=== PATIENT | male | born 2000 | race American Indian/Alaskan Native ===

== ENCOUNTER 2018-05-30 18:37 | Emergency (ER) | payer OTHER ==
--- NOTE | 2018-05-30 18:50 | Emergency Department Report ---
Blank Doc - Documentation Documentation: This is a 17-year-old male that presents with sore throat, fever, body aches, and decreased appetite. This initial assessment diagnostic orders/clinical plan/treatment(s) is/are subject to change based on patient's health status, clinical progression and re- assessment by fellow clinical providers in the ED. Further treatment and workup at subsequent clinical providers discretion. Patient/guardians urged not to elope from ED s their condition may be serious if not clinically assessed and managed. Initial orders include: 1-Patient sent to [facility] for further evaluation and treatment 2- strep test
[2018-05-30] MEDS ORDERED: TYLENOL PO ONE (18:52)
[2018-05-30] MEDS ORDERED: TYLENOL ONE (18:56)
--- NOTE | 2018-05-31 00:22 | Emergency Department Report ---
HPI - General Chief Complaint: Sore Throat Time Seen by Provider: 05/30/18 18:49 ED Past Medical Hx - Past Medical History Previous Medical History?: No - Surgical History Past Surgical History?: No - Social History Smoking Status: Never Smoker Substance Use Type: None ED Review of Systems ROS: Stated complaint: SORE THROAT Other details as noted in HPI Physical Exam - Physical Exam Vital Signs: Vital Signs 05/30/18 05/30/18 18:50 18:55 Temperature 101.8 F H Pulse Rate 109 H Respiratory 18 18 Rate Blood Pressure 112/82 O2 Sat by Pulse 97 Oximetry ED Course Vital Signs 05/30/18 05/30/18 18:50 18:55 Temperature 101.8 F H Pulse Rate 109 H Respiratory 18 18 Rate Blood Pressure 112/82 O2 Sat by Pulse 97 Oximetry Critical care attestation.: If time is entered above; I have spent that time in minutes in the direct care of this critically ill patient, excluding procedure time. ED Disposition Condition: Stable Referrals: FIFI MATTSON MD [Primary Care Provider] - 3-5 Days
--- NOTE | 2018-05-31 00:29 | Emergency Department Report ---
ED ENT HPI - General Chief complaint: Sore Throat Stated complaint: SORE THROAT Time Seen by Provider: 05/30/18 18:49 Source: patient, family Mode of arrival: Ambulatory Limitations: No Limitations - History of Present Illness Initial comments: This is a 17-year-old male here reports that he is having sore throat difficult to swallow and difficult to hold is 68. He said this started on Wednesday and he is having fever and sore throat is that of the 10 worse with swallowing. Denies any cough or nasal congestion. He said the left side of his neck appears to be swollen. Denies any difficulty in breathing and or chest pain. MD complaint: sore throat, difficulty swallowing Onset/Timin -: days(s) Location: throat Severity: severe Severity scale (0 -10): 10 Quality: constant Consistency: constant Improves with: none Worsens with: swallowing Context-Epistaxis: other (none) Context- Dental: poor dental care Associated Symptoms: fever, pain with swallowing, sore throat. denies: cough, gum swelling, toothache, tinnitus, hearing loss, discharge from ear, rhinorrhea - Related Data Previous Rx's Medication Instructions Recorded Last Taken Type Acetaminophen/Codeine [Tylenol 1 tab PO Q6H PRN #14 tab 05/31/18 Unknown Rx /Codeine # 3 tab] Chlorhexidine Mouthwash [Peridex] 15 ml MM TID 7 Days #1 bottle 05/31/18 Unknown Rx Clindamycin [Clindamycin CAP] 300 mg PO Q8H 10 Days #30 cap 05/31/18 Unknown Rx Ibuprofen [Motrin] 800 mg PO Q8HR PRN #12 tablet 05/31/18 Unknown Rx predniSONE [Deltasone] 50 mg PO QDAY 3 Days #3 tab 05/31/18 Unknown Rx Allergies Allergy/AdvReac Type Severity Reaction Status Date / Time No Known Allergies Allergy Unverified 05/30/18 18:55 ED Dental HPI - General Chief complaint: Sore Throat Stated complaint: SORE THROAT Time Seen by Provider: 05/30/18 18:49 Source: patient Mode of arrival: Ambulatory Limitations: No Limitations - Related Data Previous Rx's Medication Instructions Recorded Last Taken Type Acetaminophen/Codeine [Tylenol 1 tab PO Q6H PRN #14 tab 05/31/18 Unknown Rx /Codeine # 3 tab] Chlorhexidine Mouthwash [Peridex] 15 ml MM TID 7 Days #1 bottle 05/31/18 Unknown Rx Clindamycin [Clindamycin CAP] 300 mg PO Q8H 10 Days #30 cap 05/31/18 Unknown Rx Ibuprofen [Motrin] 800 mg PO Q8HR PRN #12 tablet 05/31/18 Unknown Rx predniSONE [Deltasone] 50 mg PO QDAY 3 Days #3 tab 05/31/18 Unknown Rx Allergies Allergy/AdvReac Type Severity Reaction Status Date / Time No Known Allergies Allergy Unverified 05/30/18 18:55 ED Review of Systems ROS: Stated complaint: SORE THROAT Other details as noted in HPI Constitutional: chills, fever ED Past Medical Hx - Past Medical History Previous Medical History?: No - Surgical History Past Surgical History?: No - Social History Smoking Status: Never Smoker Substance Use Type: None - Medications Home Medications: Home Medications Medication Instructions Recorded Confirmed Last Taken Type Acetaminophen/Codeine [Tylenol 1 tab PO Q6H PRN #14 tab 05/31/18 Unknown Rx /Codeine # 3 tab] Chlorhexidine Mouthwash [Peridex] 15 ml MM TID 7 Days #1 bottle 05/31/18 Unknown Rx Clindamycin [Clindamycin CAP] 300 mg PO Q8H 10 Days #30 cap 05/31/18 Unknown Rx Ibuprofen [Motrin] 800 mg PO Q8HR PRN #12 tablet 05/31/18 Unknown Rx predniSONE [Deltasone] 50 mg PO QDAY 3 Days #3 tab 05/31/18 Unknown Rx ED Physical Exam - General Limitations: No Limitations ED Course Vital Signs 05/30/18 05/30/18 05/31/18 18:50 18:55 01:01 Temperature 101.8 F H 99.1 F Pulse Rate 109 H 93 H Respiratory 18 18 16 Rate Blood Pressure 112/82 Blood Pressure 113/64 [Right] O2 Sat by Pulse 97 96 Oximetry - Reevaluation(s) Reevaluation #1: 05/31/18 00:46 Patient strep test came back negative. He was given 975 mg of Tylenol emergency room for fever of 101.8. Heart rates elevated. Started on IV fluid normal saline and Zofran 8 mg IV, Solu-Medrol 125 mg IV, morphine 4 mg IV and Maalox and lidocaine by mouth. Awaiting chest x-ray, lab work and CT scan with contrast of the neck. Reevaluation #2: 05/31/18 04:01 Patient is feeling a lot better. Throat is better. Strep test is negative, flu test is negative. Chest x-ray negative findings and CT of the neck shows no INSTRUMENTATION TECHNOLOGIST. I discussed this with patient and his father and it was understanding . Vital signs are stable. ED Medical Decision Making - Lab Data Result diagrams: 05/31/18 01:02 05/31/18 01:02 Lab Results 05/30/18 05/31/18 05/31/18 Range/Units 18:00 01:02 01:02 WBC 6.5 (4.5-11.0) K/mm3 RBC 5.98 H (3.65-5.03) M/mm3 Hgb 16.8 H (11.8-15.2) gm/dl Hct 49.9 H (35.5-45.6) % MCV 83 L (84-94) fl MCH 28 (28-32) pg MCHC 34 (32-34) % RDW 14.6 (13.2-15.2) % Plt Count 154 (140-440) K/mm3 Lamar % (Auto) Software Product Specialist Sodium 136 L (137-145) mmol/L Chloride 96.2 L (98-107) mmol/L Carbon Dioxide 26 (22-30) mmol/L BUN 11 (9-20) mg/dL Creatinine 0.8 (0.8-1.5) mg/dL Estimated GFR > 60 ml/min BUN/Creatinine Ratio 14 % Glucose 85 (75-100) mg/dL Lactic Acid (0.7-2.0) mmol/L Calcium 9.0 (8.4-10.2) mg/dL Influenza A (Rapid) (Negative) Influenza B (Rapid) (Negative) Group A Strep Rapid Negative (Negative) 05/31/18 05/31/18 Range/Units 01:02 01:25 WBC (4.5-11.0) K/mm3 RBC (3.65-5.03) M/mm3 Hgb (11.8-15.2) gm/dl Hct (35.5-45.6) % MCV (84-94) fl MCH (28-32) pg MCHC (32-34) % RDW (13.2-15.2) % Plt Count (140-440) K/mm3 Lamar % (Auto) Sodium (137-145) mmol/L Chloride (98-107) mmol/L Carbon Dioxide (22-30) mmol/L BUN (9-20) mg/dL Creatinine (0.8-1.5) mg/dL Estimated GFR ml/min BUN/Creatinine Ratio % Glucose (75-100) mg/dL Lactic Acid 1.10 (0.7-2.0) mmol/L Calcium (8.4-10.2) mg/dL Influenza A (Rapid) Negative (Negative) Influenza B (Rapid) Negative (Negative) Group A Strep Rapid (Negative) - Radiology Data Radiology results: report reviewed X-ray of the chest and CT scan of the neck with contrast dictated by radiologist and reports reviewed by myself. Please see details below Findings [address] [address] XRay Report Signed Patient: KEMAR RUSH II MR#: [id number] : 2000 Acct:[id number] Age/Sex: 17 / M ADM Date: 05/30/18 Loc: ED Attending Dr: Ordering Physician: LINDSEY JONES Date of Service: 05/31/18 Procedure(s): XR chest routine 2V Accession Number(s): [id number] cc: LINDSEY JONES Fluoro Time In Minutes: FINAL REPORT EXAM: XR CHEST ROUTINE 2V HISTORY: fever unknown origin TECHNIQUE: PA and lateral views of the chest were submitted. FINDINGS: Allowing for the depth of inspiration, the lungs are clear. Pleural fluid is not seen. The heart size is normal. The skeletal structures are well-maintained. IMPRESSION: No acute cardiopulmonary process. Transcribed By: RB Dictated By: HELENA SINGER MD Electronically Authenticated By: HELENA SINGER MD Signed Date/Time: 05/31/1855 DD/ TD/TT: 05/31/[address] [address] Cat Scan Report Signed Patient: KEMAR RUSH II MR#: [id number] : 2000 Acct:[id number] Age/Sex: 17 / M ADM Date: 05/30/18 Loc: ED Attending Dr: Ordering Physician: LINDSEY JONES Date of Service: 05/31/18 Procedure(s): CT neck w con Accession Number(s): [id number] cc: LINDSEY JONES FINAL REPORT PROCEDURE: CT NECK W CON TECHNIQUE: Computerized axial tomography of the soft tissue neck was performed following the IV injection of iodinated nonionic contrast. HISTORY: sore throat fever COMPARISON: No prior studies are available for comparison. FINDINGS: Skull and scalp: Normal. Paranasal sinuses: Normal. Nasopharynx: Normal . Oral cavity: Normal . Epiglottis/vallecula: Normal . Larynx/pyriform sinuses: Normal . Thyroid gland: Normal . Lymph nodes: None enlarged . Salivary glands: Normal . Upper thorax: Normal . IMPRESSION: Normal Examination Transcribed By: [facility] Dictated By: AUGUSTA MENJIVAR MD Electronically Authenticated By: AUGUSTA MENJIVAR MD Signed Date/Time: 05/31/18228 DD/ 6 TD/TT: 05/31/18226 - Medical Decision Making This is a 17-year-old male came to the emergency room with sore throat for 3 days. Physical findings for poor dental care with gingivitis, halitosis, dental caries and oropharynx with erythema and no exudate. Strep and flu test is negative. Patient had a temperature of 101.8 which is now back to normal. He was given IV fluids 1 L, Zofran, Solu-Medrol and morphine for pain. He was also given Tylenol 975 mg in the emergency room which reduced his fever. He is now feeling better and his vital signs are stable he is afebrile and patient to follow-up with ENT, primary care and dentist. I discussed chest x-ray , CT scan results and laboratory results with patient and his father and they voiced understanding. Patient discharged home with prescription for prednisone, clindamycin, Peridex mouthwash, Motrin, Tylenol 3 - Differential Diagnosis INSTRUMENTATION TECHNOLOGIST, PNA, strep throat, influenza, gum disease Critical care attestation.: If time is entered above; I have spent that time in minutes in the direct care of this critically ill patient, excluding procedure time. ED Disposition Clinical Impression: Fever in adult, Gingivitis, Dental caries Acute pharyngitis Qualifiers: Pharyngitis/tonsillitis etiology: other specified organisms Qualified Code(s): J02.8 - Acute pharyngitis due to other specified organisms Disposition: DC-01 TO HOME OR SELFCARE Is pt being admited?: No Does the pt Need Aspirin: No Condition: Stable Instructions: Dental Caries (ED), Gingivitis (ED), Pharyngitis (ED) Additional Instructions: If you condition worsens please return to the emergency room. Take Motrin every 6 hours 2 days to keep temperature down and then as needed. Increase her fluid intake to at least 3 L of water and Gatorade daily. Take antibiotic as prescribed. Gargle warm salt water and this will help to reduce sore throat. Please avoid carbonated and acidic food as this will irritate your throat He will need to follow up with primary care physician and air nose and throat in 2-3 days. Please see discharge instruction paperwork for details. He will also need to follow up with a dentist regarding dental caries and gingivitis which could lead to swelling to throat and need to be intubated. You need to have a deep cleaning done and dental work done. Gargle with mouthwash which is Peridex 3 times a day as discussed. You can take Tylenol 3 for severe pain but please do not drive or operate heavy machinery while taking this medication as it causes drowsiness Prescriptions: Acetaminophen/Codeine [Tylenol /Codeine # 3 tab] 1 tab PO Q6H PRN #14 tab PRN Reason: moderate to severe pain Chlorhexidine Mouthwash [Peridex] 15 ml MM TID 7 Days #1 bottle Clindamycin [Clindamycin CAP] 300 mg PO Q8H 10 Days #30 cap Ibuprofen [Motrin] 800 mg PO Q8HR PRN #12 tablet PRN Reason: pain predniSONE [Deltasone] 50 mg PO QDAY 3 Days #3 tab Referrals: OPHELIA MARROQUIN MD [Staff Physician] - 2-3 Days ALBERTSON FIFI CRYSTAL MD [Primary Care Provider] - 2-3 Days [facility] [place] [Outside] - 06/03/18 Forms: Accompanied Note, Work/School Release Form(ED)
[2018-05-31] MEDS ORDERED: LIDOCAINE VISCOUS 2% PO ONE (00:33)
[2018-05-31] MEDS ORDERED: MORPHINE IV ONE (00:33)
[2018-05-31] MEDS ORDERED: SOLU-Medrol IM ONE (00:33)
[2018-05-31] MEDS ORDERED: ALUM-MAG HYDROX-SIMETH 200-200-20MG/5ML PO ONE (00:33)
[2018-05-31] MEDS ORDERED: ZOFRAN IV ONE (00:33)
[2018-05-31] MEDS ORDERED: NACL 0.9% 1000 ML 1,000 ML IV ONE (00:33)
--- NOTE | 2018-05-31 00:56 | XRay Report ---
FINAL REPORT EXAM: XR CHEST ROUTINE 2V HISTORY: fever unknown origin TECHNIQUE: PA and lateral views of the chest were submitted. FINDINGS: Allowing for the depth of inspiration, the lungs are clear. Pleural fluid is not seen. The heart size is normal. The skeletal structures are well-maintained. IMPRESSION: No acute cardiopulmonary process.
[2018-05-31 01:02] VITALS: BP 113/64
[2018-05-31 01:34] LABS: Hematocrit 49.9 % (35.5-45.6); Hemoglobin 16.8 gm/dl (11.8-15.2); Mean Corpuscular HGB Conc 34 % (32-34); Mean Corpuscular Volume 83 fl (84-94); Platelet Count 154 K/mm3 (140-440); Red Blood Count 5.98 M/mm3 (3.65-5.03); Red Cell Distribution Width 14.6 % (13.2-15.2)
[2018-05-31 01:43] LABS: BUN/Creatinine Ratio 14; Blood Urea Nitrogen 11 mg/dL (9-20); Hemolysis Index 126
[2018-05-31] MEDS ORDERED: CLEOCIN 900 MG/50 mL 900 MG/50 ML BAG IV ONE (01:58)
--- NOTE | 2018-05-31 02:29 | Cat Scan Report ---
FINAL REPORT PROCEDURE: CT NECK W CON TECHNIQUE: Computerized axial tomography of the soft tissue neck was performed following the IV inje ction of iodinated nonionic contrast. HISTORY: sore throat fever COMPARISON: No prior studies are available for comparison. FINDINGS: Skull and scalp: Normal. Paranasal sinuses: Normal. Nasopharynx: Normal . Oral cavity: Normal . Epiglottis/vallecula: Normal . Larynx/pyriform sinuses: Normal . Thyroid gland: Normal . Lymph nodes: None enlarged . Salivary glands: Normal . Upper thorax: Normal . IMPRESSION: Normal Examination
[2018-05-31 03:45] LABS: Band Neutrophils # (Manual) 0.1 K/mm3; Basophils % (Manual) 0 % (0.0-1.8); Total Cells Counted 100
[2018-05-31 03:52] LABS: Large Platelets Rare; Platelet Estimate Consistent w Auto
[2018-05-31 07:15] LABS: Alanine Aminotransferase 25 units/L (7-56); Albumin 3.7 g/dL (3.9-5)
[2018-05-31 07:32] LABS: Bilirubin,Direct < 0.2 mg/dL (0-0.2)
== END 2018-05-31 04:10 | disposition home or self-care (01) ==
LOC: ED 18:37
DX: J02.8 Acute pharyngitis due to other specified organisms (principal); K02.9 Dental caries, unspecified; K05.00 Acute gingivitis, plaque induced
CPT/HCPCS: 36415; 70491; 71046; 80048; 80076; 82140; 85007; 85025; 87040; 87116; 87400; 87430; 96365; 96372; 96375; 99284; J2270; J2405; J2930; J7030; Q9967